=== PATIENT | female | born 2000 | race Caucasian/White ===

== ENCOUNTER 2023-03-19 18:31 | Emergency (ER) | payer OTHER ==
[~2023-03-19] VITALS: Ht 172.7 cm; Wt 99.8 kg
[~2023-03-19 18:31] MED LIST: CEPH250SUA PO; RXANTBENOT AD
[2023-03-19 21:03] VITALS: BP 133/91
== END 2023-03-19 21:01 | disposition home or self-care (01) ==
LOC: ER 18:31
DX: R07.89 Other chest pain (principal); Z88.0 Allergy status to penicillin
CPT/HCPCS: 93005; 93010; 99284-25

== ENCOUNTER → 2025-01-01 | Outpatient (CLI) | payer OTHER, BC ==
[2025-01-07 17:02] LABS: C. TRACHOMATIS BY TMA,THINPREP Negative (Negative); N. GONORRHOEAE BY TMA,THINPREP Negative (Negative)
== END ==
LOC: LAB SHORT 13:25 → LAB 13:25
PROVIDERS: Family Medicine
DX: Z01.419 Encounter for gynecological examination (general) (routine) without abnormal findings (principal); Z11.3 Encounter for screening for infections with a predominantly sexual mode of transmission
CPT/HCPCS: 87491; 87591; G0145